=== PATIENT | male | born 1970 | race African-American/Black ===

== ENCOUNTER 2016-04-17 23:56 | Inpatient (IN) | payer OTHER ==
[~2016-04-17] VITALS: Ht 182.9 cm; Wt 110.0 kg
[2016-04-18] VITALS (8 sets, daily range): BP systolic 116–129; BP diastolic 68–80; PULSE 66–90; RESP 18–20; TEMP 97.9–98.9; O2SAT 97–100
[2016-04-18] MEDS ORDERED: ceFAZolin 2 GM PREMIX 50 ML ONE (00:05)
[2016-04-18] MEDS ORDERED: DIPHTH/TETANUS/ACEL PERTUSSIS (BOOSTER) 0.5 ML VIAL/PFS IM ONE ×2 (00:06→00:19)
[2016-04-18] MEDS ORDERED: LORazepam 2 MG/ML VIAL ONE ×2 (00:07→00:11)
[2016-04-18] MEDS ORDERED: MIDAZOLAM HCL 5 MG/ML VIAL (1 ML) ONE (00:11)
[2016-04-18 00:17] LABS: AUTOMATED NEUTROPHIL # 2.4 TH/MM3 (1.8-7.7); BASOPHIL # 0.1 TH/MM3 (0-0.2); BASOPHIL % 1.4 % (0.0-2.0); EOSINOPHIL # 0.3 TH/MM3 (0-0.4); EOSINOPHIL % 4.5 % (0.0-4.0); HEMATOCRIT 25.3 % (39.0-51.0); LYMPH % 50.2 % (9.0-44.0); LYMPHOCYTE # 3.2 TH/MM3 (1.0-4.8); MEAN CELL VOLUME 69.1 FL (80.0-100.0); MEAN CORPUSCULAR HEMOGLOBIN 20.1 PG (27.0-34.0); MONO % 7.1 % (0.0-8.0); NEUT % 36.8 % (16.0-70.0); PLATELET COUNT 246 TH/MM3 (150-450); RED BLOOD COUNT 3.66 MIL/MM3 (4.50-5.90); RED CELL DISTRIBUTION WIDTH 19.6 % (11.6-17.2); WHITE BLOOD COUNT 6.4 TH/MM3 (4.0-11.0)
[2016-04-18 00:19] LABS: HEMO FLAGS AUTO DIFF
[2016-04-18] MEDS ORDERED: ceFAZolin 2 GM PREMIX 50 ML IV STA (00:20)
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
[2016-04-18 00:22] LABS: I-STAT POTASSIUM 3.4 MMOL/L (3.5-4.9)
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
[2016-04-18 00:29] LABS: APTT (PATIENT) 22.9 SEC (24.3-30.1); INTERNATIONAL NORMALIZED RATIO 0.9 RATIO; PROTHROMBIN TIME - PATIENT 10.3 SEC (9.8-11.6)
[2016-04-18] MEDS ORDERED: SODIUM CHLOR 0.9% 1000 ML INJ 1,000 ML IV ONE ×2 (00:30→00:45)
[2016-04-18] MEDS ORDERED: IOHEXOL 350 MG/ML 10 ML VIAL (for RAD DIAG) IV ONE (00:34)
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
[2016-04-18 00:46] LABS: BASOPHILS 1 % (0-2); CORRECTED NUCLEATED RBC 1 /100 WBC (0-0); EOSINOPHILS 4 % (0-4); NEUTROPHIL # MANUAL DIFF 2.8 TH/MM3 (1.8-7.7); POLYS (SEG NEUTROPHILS) 44 % (16-70); SCAN/DIFF FINAL DIFF MANUAL; WBC DIFF SAMPLE 100
[2016-04-18 00:47] LABS: PLATELET ESTIMATE SMEAR NORMAL (NORMAL); PLATELET MORPHOLOGY NORMAL (NORMAL)
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
[2016-04-18 00:48] LABS: ACANTHOCYTES OCC (NORMAL)
[2016-04-18 00:49] LABS: TARGET CELLS 1+ (NORMAL)
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
[2016-04-18] MEDS ORDERED: LEVE500 PO (01:02)
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
[2016-04-18] MEDS ORDERED: LIDOCAINE 1%/EPINEPHrine 1:100,000 SOLN 20 ML VIAL INFIL ONE (01:45)
[2016-04-18 01:53] LABS: MEAN CORPUSCULAR HGB CONC 29.7 % (32.0-36.0)
[2016-04-18] MEDS ORDERED: BISACODYL 10 MG SUPP PR PRN (02:00)
[2016-04-18] MEDS ORDERED: LORazepam 2 MG/ML VIAL IV PUSH PRN ×5 (02:00→07:00)
[2016-04-18] MEDS ORDERED: ONDANSETRON HCL 4 MG/2 ML VIAL IVP PRN (02:00)
[2016-04-18] MEDS ORDERED: ACETAMINOPHEN 325 MG TAB PO PRN (02:00)
[2016-04-18] MEDS ORDERED: SODIUM CHLORIDE 0.9% FLUSH 5 ML FLUSH FLUSH PRN (02:00)
--- NOTE | 2016-04-18 02:20 | PD ---
Physical Exam Time Seen by Provider: 01:50 Data Data Last Documented VS Vital Signs Date Time Temp Pulse Resp B/P Pulse Ox O2 Delivery O2 Flow Rate FiO2 04/18/16 00:10 100 Nasal Cannula 2.00 Orders I-Stat Profile (04/18/16 00:03) I-Stat Creatinine (04/18/16 00:03) Complete Blood Count With Diff (04/18/16 00:03) Prothrombin Time / Inr (Pt) (04/18/16 00:03) Act Partial Throm Time (Ptt) (04/18/16 00:03) Type And Screen (04/18/16 00:03) Chest, Single Ap (04/18/16 00:03) Ct Brain W/O Iv Contrast(Rout) (04/18/16 00:03) Ct Cerv Spine W/O Contrast (04/18/16 00:03) Ct Thorax/ Chest W Iv Contrast (04/18/16 00:03) Iv Access Insert/Monitor (04/18/16 00:03) Ecg Monitoring (04/18/16 00:03) Oximetry (04/18/16 00:03) Oxygen Administration (04/18/16 00:03) Ed Poc Ultrasound (04/18/16 ) Cefazolin 2 Gm Premix (Ancef 2 Gm Premix (04/18/16 00:05) Ydqq-Eoq-Eecwdn (Booster) Inj (Boostrix (04/18/16 00:06) Lorazepam Inj (Ativan Inj) (04/18/16 00:07) Midazolam Inj (Versed Inj) (04/18/16 00:11) Lorazepam Inj (Ativan Inj) (04/18/16 00:11) Ct Facial Bones W/O Iv Cont (04/18/16 ) Cefazolin 2 Gm Premix (Ancef 2 Gm Premix (04/18/16 00:20) Cdqx-Cce-Igqvpy (Booster) Inj (Boostrix (04/18/16 00:19) Sodium Chlor 0.9% 1000 Ml Inj (Ns 1000 M (04/18/16 00:30) Iohexol 350 Inj (Omnipaque 350 Inj) (04/18/16 00:34) Ct Abd/Pel W/O Iv Contrast (04/18/16 00:42) Sodium Chlor 0.9% 1000 Ml Inj (Ns 1000 M (04/18/16 00:45) Lidocai-Epi 1%-1:100,000 Inj (Xylocaine- (04/18/16 01:45) Admit Order (Ed Use Only) (04/18/16 01:39) Labs Laboratory Tests Test 04/18/16 00:00 White Blood Count 6.4 TH/MM3 Red Blood Count 3.66 MIL/MM3 Hemoglobin 7.3 GM/DL Bedside Hemoglobin 10.2 G/DL Hematocrit 25.3 % Bedside Hematocrit 30.0 % Mean Corpuscular Volume 69.1 FL Mean Corpuscular Hemoglobin 20.1 PG Mean Corpuscular Hemoglobin 29.0 % Concent Red Cell Distribution Width 19.6 % Platelet Count 246 TH/MM3 Mean Platelet Volume 8.3 FL Neutrophils (%) (Auto) 36.8 % Lymphocytes (%) (Auto) 50.2 % Monocytes (%) (Auto) 7.1 % Eosinophils (%) (Auto) 4.5 % Basophils (%) (Auto) 1.4 % Neutrophils # (Auto) 2.4 TH/MM3 Lymphocytes # (Auto) 3.2 TH/MM3 Monocytes # (Auto) 0.5 TH/MM3 Eosinophils # (Auto) 0.3 TH/MM3 Basophils # (Auto) 0.1 TH/MM3 CBC Comment AUTO DIFF Differential Total Cells 100 Counted Neutrophils % (Manual) 44 % Lymphocytes % 48 % Monocytes % 3 % Eosinophils % 4 % Basophils % 1 % Neutrophils # (Manual) 2.8 TH/MM3 Nucleated Red Blood Cells 1 /100 WBC Differential Comment FINAL DIFF MANUAL Atypical Lymphocytes % Platelet Estimate NORMAL Platelet Morphology Comment NORMAL Basophilic Stippling FAINT Target Cells 1+ Acanthocytes OCC Prothrombin Time 10.3 SEC Prothromb Time International 0.9 RATIO Ratio Activated Partial 22.9 SEC Thromboplast Time Bedside Sodium 142 MMOL/L Bedside Potassium 3.4 MMOL/L Bedside Chloride 102 MMOL/L Bedside Blood Urea Nitrogen 15 MG/DL Bedside Creatinine 1.8 MG/DL Bedside Glucose 83 MG/DL Blood Type O POSITIVE Antibody Screen NEGATIVE [facility] Medical Record Reviewed: Yes Supervised Visit with CHARLES: No Narrative Course I was asked to repair this patient's lacerations. Please see accompanying procedural notes. Procedures Procedure Narrative LACERATION LOCATION: Left facial cheek LENGTH: 1.5 cm NUMBER OF STITCHES/LUCIA: 4 REPAIR: The area of the laceration was prepped with Betadine and sterilely draped. The laceration was infiltrated with 1% lidocaine with epinephrine. The wound was copiously irrigated and explored without evidence of foreign body , tendon injury or neurovascular injury. The wound was closed using 5-0 prolene simple interrupted. This was a single layer repair. A sterile dressing was applied. The patient was advised to keep the dressing clean and dry. Patient tolerated the procedure well. LACERATION LOCATION: Right anterior chest LENGTH: 1.5 cm NUMBER OF STITCHES/LUCIA: 5 REPAIR: The area of the laceration was prepped with Betadine and sterilely draped. The laceration was infiltrated with 1% lidocaine with epinephrine. The wound was copiously irrigated and explored without evidence of foreign body , tendon injury or neurovascular injury. The wound was closed using lucia. This was a single layer repair. A sterile dressing was applied. The patient was advised to keep the dressing clean and dry. Patient tolerated the procedure well. Torres Vasques Apr 18, 2016 02:20
[2016-04-18 02:33] LABS: BLOOD, URINE NEG (NEG); GLUCOSE,URINE NEG (NEG); HYALINE CAST, URINE 1 /lpf (RARE); KETONE, URINE NEG (NEG); NITRITE,URINE NEG (NEG); PH, URINE 5.5 (5.0-8.5); URINE COLOR COLORLESS (YELLW/STRAW)
[2016-04-18 02:34] LABS: COMMENT (UR) CULT NOT INDICATED; CULTURE IF INDICATED CULT NOT INDICATED
[2016-04-18 02:40] LABS: AMPHETAMINE, URINE NEG (NEG); BARBITURATES, URINE NEG (NEG); COCAINE, URINE POS (NEG)
[2016-04-18] MEDS: MULTIVITAMIN INJ 10 ML, FOLIC ACID INJ 1 MG in SODIUM CHLORID 0.9% 500 ML INJ 500 ML IV SCH (02:47)
[2016-04-18] MEDS: THIAMINE INJ 100 MG in SODIUM CHLORIDE 0.9% INJ 100 ML IV SCH (02:47)
[2016-04-18] MEDS ORDERED: levETIRAcetam 1000 MG INJ 100 ML IV ONE (03:15)
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
[2016-04-18 04:08] LABS: HEMATOCRIT 22.7 % (39.0-51.0); MEAN CELL VOLUME 68.3 FL (80.0-100.0); MEAN CORPUSCULAR HEMOGLOBIN 20.3 PG (27.0-34.0); PLATELET COUNT 193 TH/MM3 (150-450); RED BLOOD COUNT 3.33 MIL/MM3 (4.50-5.90); RED CELL DISTRIBUTION WIDTH 19.7 % (11.6-17.2); WHITE BLOOD COUNT 10.7 TH/MM3 (4.0-11.0)
[2016-04-18 04:14] LABS: HEMO FLAGS AUTO DIFF
[2016-04-18 04:26] LABS: ALT (GPT) 21 U/L (12-78); ANION GAP 9 MEQ/L (5-15); AST (GOT) 27 U/L (15-37); BICARBONATE 24.1 MEQ/L (21.0-32.0); BLOOD UREA NITROGEN 14 MG/DL (7-18); CHLORIDE 109 MEQ/L (98-107); GLOMERULAR FILTRATION RATE 63 ML/MIN (>89); POTASSIUM 3.4 MEQ/L (3.5-5.1); SODIUM (NA) 142 MEQ/L (136-145)
[2016-04-18 04:28] LABS: ALKALINE PHOSPHATASE 65 U/L (45-117); TOTAL BILIRUBIN ADULT 0.2 MG/DL (0.2-1.0)
[2016-04-18] MEDS ORDERED: CLINDAMYCIN INJ 600 MG in SODIUM CHLORIDE 0.9% INJ 100 ML IV ONE (04:30)
[2016-04-18 05:17] LABS: BANDS 1 % (0-6); BASOPHILS 2 % (0-2); EOSINOPHILS 3 % (0-4); NEUTROPHIL # MANUAL DIFF 8.1 TH/MM3 (1.8-7.7); POLYS (SEG NEUTROPHILS) 75 % (16-70); SCAN/DIFF FINAL DIFF MANUAL; WBC DIFF SAMPLE 100
[2016-04-18 05:18] LABS: PLATELET ESTIMATE SMEAR NORMAL (NORMAL); PLATELET MORPHOLOGY NORMAL (NORMAL)
[2016-04-18 05:22] LABS: ACANTHOCYTES OCC (NORMAL)
[2016-04-18] MEDS: SODIUM CHLOR 0.9% 1000 ML INJ 1,000 ML IV SCH ×3 (05:25→21:48)
[2016-04-18] MEDS ORDERED: LORazepam 2 MG TAB PO PRN (07:00)
[2016-04-18] MEDS ORDERED: LORazepam 1 MG TAB PO PRN (07:00)
[2016-04-18] MEDS ORDERED: FLUMAZENIL 0.5 MG/5 ML VIAL IV PUSH PRN (07:00)
[2016-04-18] MEDS ORDERED: POTASSIUM CHLORIDE 20 MEQ CONTROLLED RELEASE TAB PO ONE (08:30)
[2016-04-18] MEDS ORDERED: SODIUM CHLOR 0.9% 250 ML INJ 250 ML IV ONE (08:30)
[2016-04-18] MEDS: SODIUM CHLORIDE 0.9% FLUSH 5 ML FLUSH FLUSH SCH ×2 (09:00→20:43)
[2016-04-18 09:26] LABS: FERRITIN 5 NG/ML (26-388); TRANSFERRIN IRON PROFILE 361 MG/DL (200-360)
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
[2016-04-18] MEDS: levETIRAcetam INJ 500 MG in SODIUM CHLORIDE 0.9% INJ 100 ML IV SCH ×2 (12:57→20:43)
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
[2016-04-19 00:28] LABS: HEMATOCRIT 25.4 % (39.0-51.0)
[2016-04-19 00:32] VITALS: BP 120/82; PULSE 68; RESP 18; TEMP 97.9; O2SAT 97
[2016-04-19] MEDS: THIAMINE INJ 100 MG in SODIUM CHLORIDE 0.9% INJ 100 ML IV SCH (01:13)
[2016-04-19] MEDS: MULTIVITAMIN INJ 10 ML, FOLIC ACID INJ 1 MG in SODIUM CHLORID 0.9% 500 ML INJ 500 ML IV SCH (01:13)
[2016-04-19 06:02] VITALS: BP 122/63; PULSE 63; RESP 18; TEMP 98; O2SAT 98
[2016-04-19] MEDS: SODIUM CHLOR 0.9% 1000 ML INJ 1,000 ML IV SCH (07:48)
[2016-04-19 07:58] LABS: HEMATOCRIT 26.2 % (39.0-51.0); MEAN CELL VOLUME 69.4 FL (80.0-100.0); MEAN CORPUSCULAR HEMOGLOBIN 21.3 PG (27.0-34.0); MEAN CORPUSCULAR HGB CONC 30.7 % (32.0-36.0); PLATELET COUNT 164 TH/MM3 (150-450); RED BLOOD COUNT 3.77 MIL/MM3 (4.50-5.90)
[2016-04-19 07:59] LABS: HEMO FLAGS AUTO DIFF
[2016-04-19 08:17] LABS: BICARBONATE 22.4 MEQ/L (21.0-32.0); MAGNESIUM 1.8 MG/DL (1.5-2.5); POTASSIUM 3.7 MEQ/L (3.5-5.1)
[2016-04-19] MEDS: levETIRAcetam INJ 500 MG in SODIUM CHLORIDE 0.9% INJ 100 ML IV SCH (08:38)
[2016-04-19 08:51] LABS: EOSINOPHILS 6 % (0-4); POLYS (SEG NEUTROPHILS) 67 % (16-70); WBC DIFF SAMPLE 100
[2016-04-19 08:52] LABS: PLATELET ESTIMATE SMEAR NORMAL (NORMAL); PLATELET MORPHOLOGY ENLARGED (NORMAL); SCAN/DIFF FINAL DIFF MANUAL
[2016-04-19] MEDS: SODIUM CHLORIDE 0.9% FLUSH 5 ML FLUSH FLUSH SCH (09:00)
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
[2016-04-19] MEDS ORDERED: PANTOPRAZOLE SODIUM 40 MG VIAL IV PUSH SCH (09:15)
[2016-04-19 10:11] VITALS: BP 122/75; PULSE 68; RESP 20; TEMP 97; O2SAT 96
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
[2016-04-19 12:04] VITALS: BP 128/78; PULSE 64; RESP 18; TEMP 97.3; O2SAT 100
[2016-04-19 14:30] LABS: REVIEW FLAG FINAL
[2016-04-19] MEDS ORDERED: PEG (High)/E-LYTE SOLN 4000 ML BTL PO ONE (16:00)
[2016-04-21] MEDS ORDERED: THIAMINE HCL 100 MG TAB PO SCH (09:00)
== END 2016-04-19 16:12 | disposition left against medical advice (07) | DRG 812 ==
LOC: NEPI 23:56 → NEDA 04-18 01:42 → EDBD 04-18 01:42 → NEPHCDU 04-18 05:00 → OBSVTOIN 04-18 16:58
PROVIDERS: ADMIT Hospitalist; ATTEND Hospitalist
PROC: 0HQ1XZZ Repair Face Skin, External Approach (ICD-10-PCS; principal; 2016-04-18)
PROC: 0HQ5XZZ Repair Chest Skin, External Approach (ICD-10-PCS; 2016-04-18)
PROC: 30233N1 Transfusion of Nonautologous Red Blood Cells into Peripheral Vein, Percutaneous Approach (ICD-10-PCS; 2016-04-18)
DX: D64.9 Anemia, unspecified (principal); T79.7XXA Traumatic subcutaneous emphysema, initial encounter; S21.111A Laceration without foreign body of right front wall of thorax without penetration into thoracic cavity, initial encounter; F14.10 Cocaine abuse, uncomplicated; S01.412A Laceration without foreign body of left cheek and temporomandibular area, initial encounter; K92.1 Melena; G40.909 Epilepsy, unspecified, not intractable, without status epilepticus; F10.129 Alcohol abuse with intoxication, unspecified; F12.10 Cannabis abuse, uncomplicated; N28.9 Disorder of kidney and ureter, unspecified; R45.1 Restlessness and agitation; Z96.642 Presence of left artificial hip joint; Y90.9 Presence of alcohol in blood, level not specified; Z23 Encounter for immunization; Z86.73 Personal history of transient ischemic attack (TIA), and cerebral infarction without residual deficits; Z91.19 Patient's noncompliance with other medical treatment and regimen; X99.9XXA Assault by unspecified sharp object, initial encounter; Y92.89 Other specified places as the place of occurrence of the external cause
CPT/HCPCS: 12001; 12011; 36430; 70450; 70486; 71010; 71260; 72125; 74176; 80048; 80053; 80307; 81001; 82435; 82565; 82728; 82947; 83540; 83550; 83735; 84132; 84295; 84520; 85007; 85014; 85018; 85027; 85610; 85730; 86850; 86900; 86901; 86920; 90471; 90715; 95819; 96374; 96375; 99291; C9113; G0390; J0690; J1953; J2060; J2250; J3411; J7030; J7040; J7050; P9016; Q9967

== ENCOUNTER 2016-05-09 15:11 | Inpatient (IN) | payer SELFPAY ==
[~2016-05-09] VITALS: Ht 188 cm; Wt 87.1 kg
[2016-05-09] VITALS (7 sets, daily range): BP systolic 114–137; BP diastolic 72–85; PULSE 58–84; RESP 14–18; TEMP 98.1–98.5; O2SAT 98–99
[~2016-05-09 15:11] MED LIST: LEVE500 PO
[2016-05-09 16:23] LABS: MEAN CORPUSCULAR HGB CONC 29.6 % (32.0-36.0)
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
[2016-05-09 16:48] LABS: AUTOMATED NEUTROPHIL # 1.2 TH/MM3 (1.8-7.7); BASOPHIL # 0.1 TH/MM3 (0-0.2); BASOPHIL % 2.3 % (0.0-2.0); EOSINOPHIL # 0.4 TH/MM3 (0-0.4); EOSINOPHIL % 11.5 % (0.0-4.0); HEMATOCRIT 29.3 % (39.0-51.0); LYMPHOCYTE # 1.8 TH/MM3 (1.0-4.8); MONO % 9.7 % (0.0-8.0); NEUT % 30.5 % (16.0-70.0); PLATELET COUNT 213 TH/MM3 (150-450); RED BLOOD COUNT 4.12 MIL/MM3 (4.50-5.90); WHITE BLOOD COUNT 3.8 TH/MM3 (4.0-11.0)
[2016-05-09 17:02] LABS: ANION GAP 8 MEQ/L (5-15); AST (GOT) 37 U/L (15-37); BICARBONATE 26.2 MEQ/L (21.0-32.0); BLOOD UREA NITROGEN 10 MG/DL (7-18); CHLORIDE 105 MEQ/L (98-107); GLOMERULAR FILTRATION RATE 83 ML/MIN (>89); MAGNESIUM 1.8 MG/DL (1.5-2.5); POTASSIUM 3.4 MEQ/L (3.5-5.1); SODIUM (NA) 139 MEQ/L (136-145)
[2016-05-09 17:04] LABS: APTT (PATIENT) 27.1 SEC (24.3-30.1); INTERNATIONAL NORMALIZED RATIO 0.9 RATIO; PROTHROMBIN TIME - PATIENT 10.3 SEC (9.8-11.6)
[2016-05-09 17:05] LABS: ALKALINE PHOSPHATASE 78 U/L (45-117); ALT (GPT) 25 U/L (12-78); HEMO FLAGS AUTO DIFF; TOTAL BILIRUBIN ADULT 0.2 MG/DL (0.2-1.0)
--- NOTE | 2016-05-09 17:14 | PD ---
Physical Exam Date Seen by Provider: May 09, 2016 Time Seen by Provider: 16:55 Narrative I was initially seen on triage by Torres Vasques PA-C. Initial lab work and physical exam was performed by him. Patient presents complaining of dizziness with near syncope. He was admitted to the hospital however signed out AMA before the workup was completed. The patient was complaining of hematochezia and reports that his continued. He denies any chest pain, chest pressure. He does report that he gets exertional shortness of breath. He also reports exertional dizziness. The patient reports drinking 2 alcoholic beverages yesterday. He states 4 days ago he snorted cocaine. He also reports using occasional marijuana. GENERAL: Well-nourished, well-developed patient, in no acute respiratory distress. SKIN: Warm and dry. HEAD: Normocephalic/atraumatic. He had sutures removed in triage from a healed laceration. EYES: No scleral icterus. No injection or drainage. NECK: Supple, trachea midline. CARDIOVASCULAR: Regular rate (60s) and rhythm without murmurs, gallops, or rubs. RESPIRATORY: Breath sounds equal bilaterally. No accessory muscle use. GASTROINTESTINAL: Abdomen soft, non-tender, nondistended. MUSCULOSKELETAL: No cyanosis, or edema. NEUROLOGICAL: Awake and alert. Cranial nerves II through XII intact. Motor grossly within normal limits. Five out of 5 muscle strength in all muscle groups. Normal speech. Data Data Last Documented VS Vital Signs Date Time Temp Pulse Resp B/P Pulse Ox O2 Delivery O2 Flow Rate FiO2 05/09/16 17:05 99 Room Air 05/09/16 15:12 98.1 84 14 114/85 Orders Type And Screen (05/09/16 16:21) Electrocardiogram (05/09/16 16:21) Complete Blood Count With Diff (05/09/16 16:21) Comprehensive Metabolic Panel (05/09/16 16:21) Magnesium (Mg) (05/09/16 16:21) Act Partial Throm Time (Ptt) (05/09/16 16:21) Prothrombin Time / Inr (Pt) (05/09/16 16:21) Drug Screen, Random Urine (05/09/16 16:21) Red Blood Cells (Rbc) (05/09/16 17:02) Admit Order (Ed Use Only) (05/09/16 17:58) Labs Laboratory Tests Test 05/09/16 05/09/16 16:30 17:02 White Blood Count 3.8 TH/MM3 Red Blood Count 4.12 MIL/MM3 Hemoglobin 8.7 GM/DL Hematocrit 29.3 % Mean Corpuscular Volume 71.0 FL Mean Corpuscular Hemoglobin 21.0 PG Mean Corpuscular Hemoglobin 29.6 % Concent Red Cell Distribution Width 25.0 % Platelet Count 213 TH/MM3 Mean Platelet Volume 8.4 FL Neutrophils (%) (Auto) 30.5 % Lymphocytes (%) (Auto) 46.0 % Monocytes (%) (Auto) 9.7 % Eosinophils (%) (Auto) 11.5 % Basophils (%) (Auto) 2.3 % Neutrophils # (Auto) 1.2 TH/MM3 Lymphocytes # (Auto) 1.8 TH/MM3 Monocytes # (Auto) 0.4 TH/MM3 Eosinophils # (Auto) 0.4 TH/MM3 Basophils # (Auto) 0.1 TH/MM3 CBC Comment AUTO DIFF Prothrombin Time 10.3 SEC Prothromb Time International 0.9 RATIO Ratio Activated Partial 27.1 SEC Thromboplast Time Sodium Level 139 MEQ/L Potassium Level 3.4 MEQ/L Chloride Level 105 MEQ/L Carbon Dioxide Level 26.2 MEQ/L Anion Gap 8 MEQ/L Blood Urea Nitrogen 10 MG/DL Creatinine 1.16 MG/DL Estimat Glomerular Filtration 83 ML/MIN Rate Random Glucose 83 MG/DL Calcium Level 8.0 MG/DL Magnesium Level 1.8 MG/DL Total Bilirubin 0.2 MG/DL Aspartate Amino Transf 37 U/L (AST/SGOT) Alanine Aminotransferase 25 U/L (ALT/SGPT) Alkaline Phosphatase 78 U/L Total Protein 7.6 GM/DL Albumin 3.5 GM/DL Blood Type O POSITIVE Antibody Screen NEGATIVE Crossmatch Leukocyte-Reduced Red Blood Cells Blood Bank Comment [facility] Medical Record Reviewed: Yes Supervised Visit with CHARLES: Yes Differential Diagnosis Upper versus lower GI bleed versus cardiac dysrhythmias Narrative Course This is a 45-year-old gentleman who presents complaints of exertional dizziness and shortness of breath. The patient was admitted to the hospital earlier this month for GI bleed however he left before being seen by GI physicians. At that time he was transfused 2 units of packed red blood cells. The patient reports continued hematochezia. He reports crampy abdominal pain. The patient reports that he's had similar episodes in the past. His hemoglobin is in the eights. Given his symptoms and continued hematochezia, he will be admitted to the hospital. He has been typed and crossed for 2 units. He'll need to be seen by GI for source of the bleeding. The patient was [facility] who [facility] the patient to her service. Diagnosis Primary Impression: GI (gastrointestinal bleed) Additional Impressions: Symptomatic anemia Polysubstance abuse Mal Beckford MD May 09, 2016 17:14
[2016-05-09 18:14] LABS: BASOPHILS 1 % (0-2); EOSINOPHILS 12 % (0-4); NEUTROPHIL # MANUAL DIFF 1.2 TH/MM3 (1.8-7.7); POLYS (SEG NEUTROPHILS) 32 % (16-70); WBC DIFF SAMPLE 100
[2016-05-09 18:15] LABS: PLATELET ESTIMATE SMEAR NORMAL (NORMAL); PLATELET MORPHOLOGY NORMAL (NORMAL); SCAN/DIFF FINAL DIFF MANUAL; TARGET CELLS 1+ (NORMAL)
[2016-05-09] MEDS ORDERED: MORPHINE SULFATE 4 MG/ML INJ IV ONE (18:45)
[2016-05-09] MEDS ORDERED: ONDANSETRON HCL 4 MG/2 ML VIAL IVP ONE (18:45)
[2016-05-09] MEDS ORDERED: SODIUM CHLORIDE 0.9% FLUSH 5 ML FLUSH IVF PRN (19:00)
[2016-05-09] MEDS ORDERED: POTASSIUM CHLORIDE 10 MEQ CONTROLLED RELEASE TAB PO ONE (21:15)
[2016-05-09] MEDS ORDERED: SODIUM CHLORIDE 0.9% FLUSH 5 ML FLUSH FLUSH PRN (21:15)
[2016-05-09] MEDS ORDERED: LORazepam 1 MG TAB PO PRN (21:15)
[2016-05-09] MEDS ORDERED: NALOXONE HCL 0.4 MG/ML AMP IV PRN (21:15)
[2016-05-09] MEDS ORDERED: LORazepam 2 MG/ML VIAL IV PUSH PRN ×5 (21:15)
[2016-05-09] MEDS ORDERED: FLUMAZENIL 0.5 MG/5 ML VIAL IV PUSH PRN (21:15)
[2016-05-09] MEDS ORDERED: LORazepam 2 MG TAB PO PRN (21:15)
[2016-05-09] MEDS ORDERED: ONDANSETRON HCL 4 MG/2 ML VIAL IVP PRN (21:15)
[2016-05-09] MEDS ORDERED: BISACODYL 10 MG SUPP PR PRN (21:15)
[2016-05-09] MEDS ORDERED: MAGNESIUM HYDROXIDE SUSP 30 ML CUP PO PRN (21:15)
[2016-05-09] MEDS ORDERED: ACETAMINOPHEN/HYDROcodone 325 MG/5 MG TAB PO PRN (21:15)
[2016-05-09] MEDS ORDERED: HALOPERIDOL LACTATE 5 MG/ML AMP IM PRN (21:15)
[2016-05-09] MEDS ORDERED: ACETAMINOPHEN/HYDROcodone 325 MG/7.5 MG TAB PO PRN (21:15)
[2016-05-09] MEDS ORDERED: SENNOSIDES 8.6 MG TAB PO PRN (21:15)
[2016-05-09] MEDS ORDERED: ACETAMINOPHEN 325 MG TAB PO PRN ×2 (21:15)
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
--- NOTE | 2016-05-09 22:28 | RADRPT ---
EXAM DATE/TIME: 05/09/2016 21:39 [place] COMPARISON: CT BRAIN W/O CONTRAST, April 18, 2016, 0:18. INDICATIONS : Dizziness past 2 days. RADIATION DOSE: 47.51 CTDIvol (mGy) MEDICAL HISTORY : None SURGICAL HISTORY : None. ENCOUNTER: Initial ACUITY: 2 days PAIN SCALE: 4/10 LOCATION: Bilateral cranial TECHNIQUE: Multiple contiguous axial images were obtained of the head. Using automated exposure control and adj ustment of the mA and/or kV according to patient size, radiation dose was kept as low as reasonably a chievable to obtain optimal diagnostic quality images. FINDINGS: CEREBRUM: Focal encephalomalacia is identified in the right frontal parietal region. This was seen previously a nd appear stable. There is no subacute infarct, hemorrhage, mass effect or edema. POSTERIOR FOSSA: The cerebellum and brainstem are intact. The 4th ventricle is midline. The cerebellopontine angle i s unremarkable. EXTRACRANIAL: The visualized portion of the orbits is intact. SKULL: The calvaria is intact. No evidence of skull fracture. CONCLUSION: Chronic right frontal parietal infarct. No evidence of acute infarct, hemorrhage, mass or edema. Genaro More MD on May 09, 2016 at 22:22 Board Certified Radiologist. This report was verified electronically.
[2016-05-09] MEDS: 1/2 NS + KCL 20 MEQ INJ 1,000 ML IV SCH (22:32)
[2016-05-09] MEDS: PANTOPRAZOLE SODIUM 40 MG VIAL IV PUSH SCH (22:33)
[2016-05-09] MEDS: levETIRAcetam 500 MG TAB PO SCH (22:34)
[2016-05-09] MEDS ORDERED: CALAMINE LOTION 180 APPLIC/180 ML BTL TOPICAL PRN (23:30)
[2016-05-09] MEDS ORDERED: diphenhydrAMINE HCL 25 MG CAP PO PRN (23:30)
[2016-05-10] VITALS (9 sets, daily range): BP systolic 117–140; BP diastolic 62–96; PULSE 52–80; RESP 15–18; TEMP 95.6–98.2; O2SAT 95–100
[2016-05-10 06:32] LABS: MEAN CELL VOLUME 71.5 FL (80.0-100.0); MEAN CORPUSCULAR HEMOGLOBIN 21.8 PG (27.0-34.0); MEAN CORPUSCULAR HGB CONC 30.5 % (32.0-36.0); PLATELET COUNT 174 TH/MM3 (150-450); RED BLOOD COUNT 4.47 MIL/MM3 (4.50-5.90); RED CELL DISTRIBUTION WIDTH 23.4 % (11.6-17.2)
[2016-05-10 06:42] LABS: HEMO FLAGS AUTO DIFF
[2016-05-10 06:57] LABS: BICARBONATE 28.2 MEQ/L (21.0-32.0); POTASSIUM 3.3 MEQ/L (3.5-5.1)
[2016-05-10 07:22] LABS: BASOPHILS 1 % (0-2); EOSINOPHILS 5 % (0-4); NEUTROPHIL # MANUAL DIFF 3.4 TH/MM3 (1.8-7.7); PLATELET ESTIMATE SMEAR NORMAL (NORMAL); PLATELET MORPHOLOGY NORMAL (NORMAL); POLYS (SEG NEUTROPHILS) 68 % (16-70); SCAN/DIFF FINAL DIFF MANUAL; WBC DIFF SAMPLE 100
[2016-05-10 07:23] LABS: TARGET CELLS 1+ (NORMAL)
--- NOTE | 2016-05-10 08:34 | HHI.PR ---
Subjective Remarks in no acute distress. has mild dizziness. has mild abdominal pain and nausea but with no emesis. blood transfusion in process. Objective Vitals Vital Signs Date Time Temp Pulse Resp B/P Pulse Ox O2 Delivery O2 Flow Rate FiO2 05/10/16 05:10 97.0 80 17 121/78 95 05/10/16 05:10 97.0 80 17 95 05/10/16 03:06 96.4 56 16 117/86 99 05/10/16 02:32 96.7 54 15 120/73 97 05/10/16 01:32 96.7 54 15 120/73 97 05/10/16 01:14 98.2 61 16 125/62 99 05/10/16 01:14 61 16 05/09/16 23:37 16 05/09/16 23:00 62 16 137/72 99 Room Air 05/09/16 21:39 98.5 71 16 135/85 99 Room Air 05/09/16 21:00 72 16 135/75 99 Room Air 05/09/16 20:19 16 05/09/16 19:06 98.5 63 18 119/77 98 Room Air 05/09/16 19:03 98.5 58 18 119/77 98 Room Air 05/09/16 19:00 98.4 75 16 126/76 99 Room Air 05/09/16 17:05 99 Room Air 05/09/16 15:12 98.1 84 14 114/85 99 I/O 05/09/16 05/09/16 05/09/16 05/10/16 05/10/16 05/10/16 07:00 15:00 23:00 07:00 15:00 23:00 Intake Total 500 ml Balance 500 ml Intake Packed Cells 500 ml Result Diagram: 05/10/16 0620 05/10/16 0620 Imaging Last Impressions Head CT 05/09/16 0000 Signed Impressions: Service Date/Time: Monday, May 09, 2016 21:39 - CONCLUSION: Chronic right frontal parietal infarct. No evidence of acute infarct, hemorrhage, mass or edema. Genaro More MD Objective Remarks GENERAL: This is a well-nourished, well-developed patient, in no apparent distress. CARDIOVASCULAR: Regular rate and regular rhythm without murmurs, gallops, or rubs. RESPIRATORY: Clear to auscultation. Breath sounds equal bilaterally. No wheezes , rales, or rhonchi. GASTROINTESTINAL: Abdomen soft, non-tender, nondistended. Normal, active bowel sounds MUSCULOSKELETAL: Extremities without clubbing, cyanosis, or edema. NEURO: Alert & Oriented x4 to person, place, time, situation. Moves all ext x4 Procedures none Medications and IVs Current Medications Morphine Sulfate (Morphine Inj) 4 mg ONCE ONCE IV Last administered on 19:03; Start 05/09/16 at 18:45; Stop 05/09/16 at 18:46; Status DC Ondansetron HCl (Zofran Inj) 4 mg ONCE ONCE IVP Last administered on 19:02; Start 05/09/16 at 18:45; Stop 05/09/16 at 18:46; Status DC IV Flush (NS Flush) 2 ml UNSCH PRN IVF FLUSH AFTER USING IV ACCESS; Start 05/09 at 19:00; Stop 05/09/16 at 21:26; Status DC Potassium Chloride (KCl) 30 meq ONCE ONCE PO Last administered on 05/09/16 22 :33; Start 05/09/16 at 21:15; Stop 05/09/16 at 21:16; Status DC Pantoprazole Sodium (Protonix Inj) 40 mg Q24H IV PUSH Last administered on 05/09 22:33; Start 05/09/16 at 21:15 Levetriacetam (Keppra) 500 mg BID PO Last administered on 05/09/16 22:34; Start 05/09/16 at 21:15 Lorazepam (Ativan Inj) 1 mg Q6H PRN IV PUSH sz; Start 05/09/16 at 21:15 Folic Acid (Folate) 1 mg DAILY PO ; Start 05/10/16 at 09:00; Stop 05/15/16 at 08: 59 Thiamine HCl (Vitamin B1) 100 mg DAILY PO ; Start 05/10/16 at 09:00 Multivitamins/ Minerals Therapeutic (Theragran M Tab) 1 tab DAILY PO ; Start at 09:00; Stop 05/15/16 at 08:59 Flumazenil (Romazicon Inj) 0.2 mg Q1M PRN IV PUSH SEE LABEL COMMENTS; Start at 21:15 Lorazepam (Ativan) 1 mg Q4H PRN PO CIWA 8 - 10; Start 05/09/16 at 21:15 Lorazepam (Ativan Inj) 1 mg Q4H PRN IV PUSH CIWA 8 - 10; Start 05/09/16 at 21: 15 Lorazepam (Ativan) 2 mg Q2H PRN PO CIWA 11-14; Start 05/09/16 at 21:15 Lorazepam (Ativan Inj) 2 mg Q2H PRN IV PUSH CIWA 11-14; Start 05/09/16 at 21:15 Lorazepam (Ativan Inj) 2 mg Q1H PRN IV PUSH CIWA 15-20; Start 05/09/16 at 21:15 Lorazepam (Ativan Inj) 2 mg Q15M PRN IV PUSH CIWA > 20; Start 05/09/16 at 21:15 Haloperidol Lactate (Haldol Inj) 2 mg Q15M PRN IM SEE LABEL COMMENTS; Start at 21:15 IV Flush (NS Flush) 2 ml UNSCH PRN FLUSH FLUSH AFTER USING IV ACCESS; Start at 21:15 IV Flush (NS Flush) 2 ml BID FLUSH ; Start 05/10/16 at 09:00 Acetaminophen (Tylenol) 650 mg Q4H PRN PO TEMP > 100.4; Start 05/09/16 at 21:15 Ondansetron HCl (Zofran Inj) 4 mg Q6H PRN IVP NAUSEA OR VOMITING; Start at 21:15 Bisacodyl (Dulcolax Supp) 10 mg DAILY PRN [place] CONSTIPATION; Start 05/09/16 at 21 :15 Docusate Sodium (Colace) 100 mg Q12HR PO ; Start 05/10/16 at 09:00 Magnesium Hydroxide (Milk Of Magnesia Liq) 30 ml Q12H PRN PO CONSTIPATION; Start 05/09/16 at 21:15 Sennosides (Senokot) 17.2 mg Q12H PRN PO CONSTIPATION; Start 05/09/16 at 21:15 Acetaminophen (Tylenol) 650 mg Q6H PRN PO PAIN SCALE 1 TO 2; Start 05/09/16 at 21:15 Acetaminophen/ Hydrocodone Bitart ([place] 5-325 Mg) 1 tab Q4H PRN PO PAIN SCALE 3 TO 5; Start 05/09/16 at 21:15; Stop 05/09/16 at 23:22; Status DC Acetaminophen/ Hydrocodone Bitart ([place] 7.5-325 Mg) 1 tab Q4H PRN PO PAIN SCALE 6 TO 10 Last administered on 05/09/16 22:41; Start 05/09/16 at 21:15; Stop 05/09/16 at 23:22; Status DC Morphine Sulfate (Morphine Inj) 1 mg Q3H PRN IV PAIN; Start 05/09/16 at 21:15 Naloxone HCl 0.4 mg 0.4 mg UNSCH PRN IV SEE LABEL COMMENTS; Start 05/09/16 at 21:15 Potassium Chloride/Sodium Chloride (03/14 NS + KCl 20 Meq Inj) 1,000 ml @ 84 mls/ hr [id number] IV Last administered on 05/09/16 22:32; Start 05/09/16 at 21:15 Diphenhydramine HCl (Benadryl) 25 mg Q4H PRN PO ITCHING Last administered on 23:34; Start 05/09/16 at 23:30 Calamine (Calamine Lotion) 1 applic Q6H PRN TOPICAL itching; Start 05/09/16 at 23:30 A/P Assessment and Plan A/P Symptomatic anemia. Patient currently receiving packed RBC. monitor H/H. GI bleed with history of hematochezia. continue PPI and consulted GI for endoscopy. Headache with history of cocaine use. Patient nonfocal. head CT with no acute abnormality. Patient counseled regarding cocaine use. Neuro checks leukopenia. improved. Hypokalemia. being replaced through IV fluid- will monitor. Tobacco and alcohol abuse. Patient counseled. Tobacco cessation. [facility] protocol Chronic medical conditions of Seizure disorder and CVA. Continue Keppra. Seizure precautions DVT prophylaxis with SCD and early ambulation Tanner Sotelo MD May 10, 2016 08:34
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
[2016-05-10] MEDS: 1/2 NS + KCL 20 MEQ INJ 1,000 ML IV SCH ×2 (09:10→20:00)
[2016-05-10] MEDS: levETIRAcetam 500 MG TAB PO SCH ×2 (10:24→19:57)
[2016-05-10] MEDS: DOCUSATE SODIUM 100 MG CAP PO SCH ×2 (10:24→19:58)
[2016-05-10] MEDS: THIAMINE HCL 100 MG TAB PO SCH (10:24)
[2016-05-10] MEDS: MULTIVITAMINS/MINERALS THERAPEUTIC TAB PO SCH (10:24)
[2016-05-10] MEDS: FOLIC ACID 1 MG TAB PO SCH (10:24)
[2016-05-10] MEDS: SODIUM CHLORIDE 0.9% FLUSH 5 ML FLUSH FLUSH SCH ×2 (10:24→19:58)
[2016-05-10] MEDS: MORPHINE SULFATE 4 MG/ML INJ IV PRN ×3 (10:26→19:57)
[2016-05-10 14:03] LABS: HEMATOCRIT 32.9 % (39.0-51.0)
[2016-05-10] MEDS ORDERED: PEG (High)/E-LYTE SOLN 4000 ML BTL PO ONE (16:00)
[2016-05-10 16:11] LABS: AMPHETAMINE, URINE NEG (NEG); BARBITURATES, URINE NEG (NEG); COCAINE, URINE POS (NEG)
[2016-05-10] MEDS: PANTOPRAZOLE SODIUM 40 MG VIAL IV PUSH SCH (19:57)
[2016-05-11] VITALS (8 sets, daily range): BP systolic 121–140; BP diastolic 74–98; PULSE 55–89; RESP 16–20; TEMP 96.4–97.8; O2SAT 92–99
[2016-05-11] MEDS: MORPHINE SULFATE 4 MG/ML INJ IV PUSH PRN ×5 (03:37→18:07)
--- NOTE | 2016-05-11 08:01 | HHI.PR ---
Subjective Remarks in no acute distress. has some abdominal pain. no hematemesis. awaiting endoscopy. Objective Vitals Vital Signs Date Time Temp Pulse Resp B/P Pulse Ox O2 Delivery O2 Flow Rate FiO2 05/11/16 04:00 97.2 62 16 130/78 97 05/11/16 03:59 16 05/11/16 00:00 97.1 89 16 137/98 95 05/10/16 21:03 16 05/10/16 20:00 95.6 52 16 140/96 100 05/10/16 16:00 97.5 72 18 132/82 99 05/10/16 12:00 97.2 68 18 135/81 98 05/10/16 08:00 96.6 80 18 128/79 99 I/O 05/10/16 05/10/16 05/10/16 05/11/16 05/11/16 05/11/16 07:00 15:00 23:00 07:00 15:00 23:00 Intake Total 720 ml 360 ml 0 ml Output Total 325 ml 500 ml 1100 ml Balance 395 ml -140 ml -1100 ml Intake Oral 720 ml 360 ml 0 ml Output Urine Total 325 ml 500 ml 1100 ml # Bowel Movements 2 2 Result Diagram: 05/10/16 1309 05/10/16 0620 Imaging Last Impressions Head CT 05/09/16 0000 Signed Impressions: Service Date/Time: Monday, May 09, 2016 21:39 - CONCLUSION: Chronic right frontal parietal infarct. No evidence of acute infarct, hemorrhage, mass or edema. Genaro More MD Objective Remarks GENERAL: This is a well-nourished, well-developed patient, in no apparent distress. CARDIOVASCULAR: Regular rate and regular rhythm without murmurs, gallops, or rubs. RESPIRATORY: Clear to auscultation. Breath sounds equal bilaterally. No wheezes , rales, or rhonchi. GASTROINTESTINAL: Abdomen soft, non-tender, nondistended. Normal, active bowel sounds MUSCULOSKELETAL: Extremities without clubbing, cyanosis, or edema. NEURO: Alert & Oriented x4 to person, place, time, situation. Moves all ext x4 Procedures none Medications and IVs Current Medications Morphine Sulfate (Morphine Inj) 4 mg ONCE ONCE IV Last administered on t 19:03; Start 05/09/16 at 18:45; Stop 05/09/16 at 18:46; Status DC Ondansetron HCl (Zofran Inj) 4 mg ONCE ONCE IVP Last administered on 19:02; Start 05/09/16 at 18:45; Stop 05/09/16 at 18:46; Status DC IV Flush (NS Flush) 2 ml UNSCH PRN IVF FLUSH AFTER USING IV ACCESS; Start 05/09 at 19:00; Stop 05/09/16 at 21:26; Status DC Potassium Chloride (KCl) 30 meq ONCE ONCE PO Last administered on 05/09/16 22 :33; Start 05/09/16 at 21:15; Stop 05/09/16 at 21:16; Status DC Pantoprazole Sodium (Protonix Inj) 40 mg Q24H IV PUSH Last administered on 05/10 19:57; Start 05/09/16 at 21:15 Levetriacetam (Keppra) 500 mg BID PO Last administered on 05/10/16 19:57; Start 05/09/16 at 21:15 Lorazepam (Ativan Inj) 1 mg Q6H PRN IV PUSH sz; Start 05/09/16 at 21:15 Folic Acid (Folate) 1 mg DAILY PO Last administered on 05/10/16 10:24; Start 05/10/16 at 09:00; Stop 05/15/16 at 08:59 Thiamine HCl (Vitamin B1) 100 mg DAILY PO Last administered on 05/10/16 10:24 ; Start 05/10/16 at 09:00 Multivitamins/ Minerals Therapeutic (Theragran M Tab) 1 tab DAILY PO Last administered on 05/10/16 10:24; Start 05/10/16 at 09:00; Stop 05/15/16 at 08:59 Flumazenil (Romazicon Inj) 0.2 mg Q1M PRN IV PUSH SEE LABEL COMMENTS; Start at 21:15 Lorazepam (Ativan) 1 mg Q4H PRN PO CIWA 8 - 10; Start 05/09/16 at 21:15 Lorazepam (Ativan Inj) 1 mg Q4H PRN IV PUSH CIWA 8 - 10 Last administered on 22:32; Start 05/09/16 at 21:15 Lorazepam (Ativan) 2 mg Q2H PRN PO CIWA 11-14; Start 05/09/16 at 21:15 Lorazepam (Ativan Inj) 2 mg Q2H PRN IV PUSH CIWA 11-14; Start 05/09/16 at 21:15 Lorazepam (Ativan Inj) 2 mg Q1H PRN IV PUSH CIWA 15-20; Start 05/09/16 at 21:15 Lorazepam (Ativan Inj) 2 mg Q15M PRN IV PUSH CIWA > 20; Start 05/09/16 at 21:15 Haloperidol Lactate (Haldol Inj) 2 mg Q15M PRN IM SEE LABEL COMMENTS; Start at 21:15 IV Flush (NS Flush) 2 ml UNSCH PRN FLUSH FLUSH AFTER USING IV ACCESS; Start at 21:15 IV Flush (NS Flush) 2 ml BID FLUSH Last administered on 05/10/16 19:58; Start 05/10/16 at 09:00 Acetaminophen (Tylenol) 650 mg Q4H PRN PO TEMP > 100.4; Start 05/09/16 at 21:15 Ondansetron HCl (Zofran Inj) 4 mg Q6H PRN IVP NAUSEA OR VOMITING Last administered on 05/10/16 19:56; Start 05/09/16 at 21:15 Bisacodyl (Dulcolax Supp) 10 mg DAILY PRN SC CONSTIPATION; Start 05/09/16 at 21 :15 Docusate Sodium (Colace) 100 mg Q12HR PO Last administered on 05/10/16 10:24; Start 05/10/16 at 09:00 Magnesium Hydroxide (Milk Of Magnesia Liq) 30 ml Q12H PRN PO CONSTIPATION; Start 05/09/16 at 21:15 Sennosides (Senokot) 17.2 mg Q12H PRN PO CONSTIPATION; Start 05/09/16 at 21:15 Acetaminophen (Tylenol) 650 mg Q6H PRN PO PAIN SCALE 1 TO 2; Start 05/09/16 at 21:15 Acetaminophen/ Hydrocodone Bitart ([place] 5-325 Mg) 1 tab Q4H PRN PO PAIN SCALE 3 TO 5; Start 05/09/16 at 21:15; Stop 05/09/16 at 23:22; Status DC Acetaminophen/ Hydrocodone Bitart ([place] 7.5-325 Mg) 1 tab Q4H PRN PO PAIN SCALE 6 TO 10 Last administered on 05/09/16 22:41; Start 05/09/16 at 21:15; Stop 05/09/16 at 23:22; Status DC Morphine Sulfate (Morphine Inj) 1 mg Q3H PRN IV PAIN Last administered on 19:57; Start 05/09/16 at 21:15; Stop 05/11/16 at 03:19; Status DC Naloxone HCl 0.4 mg 0.4 mg UNSCH PRN IV SEE LABEL COMMENTS; Start 05/09/16 at 21:15 Potassium Chloride/Sodium Chloride (03/14 NS + KCl 20 Meq Inj) 1,000 ml @ 84 mls/ hr [id number] IV Last administered on 05/10/16 20:00; Start 05/09/16 at 21:15 Diphenhydramine HCl (Benadryl) 25 mg Q4H PRN PO ITCHING Last administered on 23:34; Start 05/09/16 at 23:30 Calamine (Calamine Lotion) 1 applic Q6H PRN TOPICAL itching; Start 05/09/16 at 23:30 Polyethylene Glycol/ Electrolytes (Colyte Liq) 4,000 ml ONCE ONCE PO Last administered on 05/10/16 16:00; Start 05/10/16 at 16:00; Stop 05/10/16 at 16:01 ; Status DC Morphine Sulfate (Morphine Inj) 1 mg Q3H PRN IV PUSH PAIN Last administered on 05/11/16 03:37; Start 05/11/16 at 03:30 A/P Assessment and Plan A/P Symptomatic anemia. Patient received packed RBC. monitor H/H. GI bleed with history of hematochezia. continue PPI and consulted GI for endoscopy which has been planned for today. Headache with history of cocaine use. Patient nonfocal. head CT with no acute abnormality. Patient counseled regarding cocaine use. Neuro checks leukopenia. improved. Hypokalemia. being replaced through IV fluid- will monitor. Tobacco and alcohol abuse. Patient counseled. Tobacco cessation. [facility] protocol Chronic medical conditions of Seizure disorder and CVA. Continue Keppra. Seizure precautions DVT prophylaxis with SCD and early ambulation Discharge Planning awaiting GI work-up. Tanner Sotelo MD May 11, 2016 08:01
[2016-05-11 08:03] LABS: AUTOMATED NEUTROPHIL # 3.1 TH/MM3 (1.8-7.7); BASOPHIL % 0.6 % (0.0-2.0); EOSINOPHIL # 0.4 TH/MM3 (0-0.4); EOSINOPHIL % 9.2 % (0.0-4.0); LYMPH % 16.4 % (9.0-44.0); LYMPHOCYTE # 0.8 TH/MM3 (1.0-4.8); MEAN CELL VOLUME 71.2 FL (80.0-100.0); MEAN CORPUSCULAR HGB CONC 30.9 % (32.0-36.0); MONO % 8.5 % (0.0-8.0); NEUT % 65.3 % (16.0-70.0); PLATELET COUNT 157 TH/MM3 (150-450); RED BLOOD COUNT 4.63 MIL/MM3 (4.50-5.90); RED CELL DISTRIBUTION WIDTH 24.4 % (11.6-17.2); WHITE BLOOD COUNT 4.8 TH/MM3 (4.0-11.0)
[2016-05-11] MEDS ORDERED: THERM PO (08:03)
[2016-05-11] MEDS ORDERED: FOLI1TAB4 PO (08:03)
[2016-05-11] MEDS ORDERED: VITA100T2 PO (08:03)
[2016-05-11 08:10] LABS: HEMO FLAGS AUTO DIFF
[2016-05-11 09:16] LABS: OVALOCYTES 1+ (NORMAL); TARGET CELLS 1+ (NORMAL)
[2016-05-11 09:17] LABS: PLATELET ESTIMATE SMEAR NORMAL (NORMAL); PLATELET MORPHOLOGY NORMAL (NORMAL); SCAN/DIFF AUTO DIFF CONFIRMED
[2016-05-11] MEDS ORDERED: PROPOFOL 200 MG/20 ML AMP IV ONE (09:52)
--- NOTE | 2016-05-11 10:25 | PD.PROCEDR ---
GI Procedure REFERRING PHYSICIAN Reuben PROCEDURE PERFORMED EGD with biopsy followed by colonoscopy INDICATION FOR PROCEDURE GI bleed anemia PROCEDURE: The procedure, risks and benefits were discussed with Mr. Prakash and informed consent was obtained. Anesthesia sedated him with Diprivan. He was placed in the left lateral decubitus position. EGD: The Pentax videoscope was introduced through the oropharynx and advanced to the second portion of the duodenum under direct visualization. Retroflexion was performed in the stomach. FINDINGS: The esophagus this was normal The stomach there was punctate erythema in the antrum but no ulcerations or erosions no blood or bleeding the rest of the stomach was unremarkable antral biopsies were taken The duodenum this was normal Colonoscopy: The Pentax videoscope was introduced through the rectum and advanced to cecum where the ileocecal valve and appendiceal orifice were identified. Retroflexion was performed in the rectum. Colonic prep was good FINDINGS: Colonic withdrawal time greater than 6 minutes as the scope was slowly withdrawn colonic mucosa was carefully inspected this was noted to be unremarkable and within normal limits the whole way through retroflexion in the rectum did reveal moderate size internal hemorrhoids and rectal examination reveals moderate to large size external hemorrhoids ESTIMATED BLOOD LOSS: None SPECIMENS REMOVED: Gastric COMPLICATIONS: None IMPRESSION: Mild antral gastritis Internal and external hemorrhoids PLAN: Advance diet Supportive care Await biopsies High fiber diet and avoid straining when defecating Consider colorectal surgical evaluation for hemorrhoids if recurrences of bleeding Scott Pete MD May 11, 2016 10:25
[2016-05-11] MEDS: levETIRAcetam 500 MG TAB PO SCH (11:32)
[2016-05-11] MEDS: DOCUSATE SODIUM 100 MG CAP PO SCH (11:32)
[2016-05-11] MEDS: THIAMINE HCL 100 MG TAB PO SCH (11:32)
[2016-05-11] MEDS: FOLIC ACID 1 MG TAB PO SCH (11:32)
[2016-05-11] MEDS: MULTIVITAMINS/MINERALS THERAPEUTIC TAB PO SCH (11:32)
[2016-05-11] MEDS: SODIUM CHLORIDE 0.9% FLUSH 5 ML FLUSH FLUSH SCH (11:33)
[2016-05-11] MEDS: 1/2 NS + KCL 20 MEQ INJ 1,000 ML IV SCH ×2 (11:33→20:55)
--- NOTE | 2016-05-16 13:00 | EKG ---
Date Performed: 05/09/2016 Time Performed: 16:35:36 PTAGE: 45 years EKG: Sinus rhythm POSSIBLE RIGHT VENTRICULAR CONDUCTION DELAY BORDERLINE ECG NO PREVIOUS TRACING DOCTOR: Nelson Moody Interpretating Date/Time 05/16/2016 12:58:12
== END 2016-05-11 20:00 | disposition left against medical advice (07) | DRG 379 ==
LOC: NEPC 15:11 → UNDOADMOB 18:00 → INTOOBSV 18:00 → NEDA 18:00 → NEDH 18:00 → EDLOC 18:00 → HOCB 05-10 01:18 → OBSVTOIN 05-10 09:27
PROVIDERS: ADMIT Internal Medicine; ATTEND Internal Medicine
PROC: 30233N1 Transfusion of Nonautologous Red Blood Cells into Peripheral Vein, Percutaneous Approach (ICD-10-PCS; principal; 2016-05-10)
PROC: 0DJD8ZZ Inspection of Lower Intestinal Tract, Via Natural or Artificial Opening Endoscopic (ICD-10-PCS; 2016-05-11)
PROC: 0DB68ZX Excision of Stomach, Via Natural or Artificial Opening Endoscopic, Diagnostic (ICD-10-PCS; 2016-05-11 09:10)
DX: K92.1 Melena (principal); F14.10 Cocaine abuse, uncomplicated; G40.909 Epilepsy, unspecified, not intractable, without status epilepticus; F10.10 Alcohol abuse, uncomplicated; Z72.0 Tobacco use; K64.9 Unspecified hemorrhoids; E87.6 Hypokalemia; K64.8 Other hemorrhoids; K64.4 Residual hemorrhoidal skin tags; K44.9 Diaphragmatic hernia without obstruction or gangrene; K21.9 Gastro-esophageal reflux disease without esophagitis; Z87.11 Personal history of peptic ulcer disease; Z86.73 Personal history of transient ischemic attack (TIA), and cerebral infarction without residual deficits; Z88.8 Allergy status to other drugs, medicaments and biological substances; Z96.642 Presence of left artificial hip joint; D64.9 Anemia, unspecified
CPT/HCPCS: 36430; 70450; 80048; 80053; 80307; 83735; 84132; 85007; 85014; 85018; 85025; 85027; 85610; 85730; 86850; 86900; 86901; 86920; 88305; 88312; 93005; C9113; G0378; J2060; J2270; J2405; P9016